=== PATIENT | female | born 1985 | race Caucasian/White ===

== ENCOUNTER 2020-12-15 06:26 | Emergency (ER) | payer OTHER ==
[2020-12-15] MEDS ORDERED: IBUPROFEN600 MG PO (07:39)
[2020-12-15] MEDS ORDERED: AMOXICILLIN500 M1 PO (07:39)
== END 2020-12-15 08:22 | disposition home or self-care (01) ==
LOC: ER1 06:26
DX: R68.84 Jaw pain (principal); R51.9 Headache, unspecified; I10 Essential (primary) hypertension; F17.210 Nicotine dependence, cigarettes, uncomplicated; Z88.8 Allergy status to other drugs, medicaments and biological substances
CPT/HCPCS: 99283

== ENCOUNTER 2021-05-31 22:32 | Emergency (ER) | payer OTHER ==
[~2021-05-31 22:32] MED LIST: AMOXICILLIN500 M1 PO; IBUPROFEN600 MG PO
[2021-05-31] MEDS ORDERED: CLEOCIN HCL150 MG PO (22:44)
[2021-05-31] MEDS ORDERED: LODINE CAP 300300 MG PO (22:44)
== END 2021-05-31 22:47 | disposition home or self-care (01) ==
LOC: ER1 22:32
DX: K02.9 Dental caries, unspecified (principal); K04.7 Periapical abscess without sinus; I10 Essential (primary) hypertension; Z88.8 Allergy status to other drugs, medicaments and biological substances
CPT/HCPCS: 99282